=== PATIENT | female | born 1985 | race Caucasian/White ===

== ENCOUNTER 2022-03-03 16:25 | Outpatient (REF) | payer MEDICAID, SELFPAY ==
[2022-03-03 21:49] LABS: Hemoglobin A1C 5.5 % (<5.7)
[2022-03-03 22:01] LABS: Calculated LDL 127 mg/dL (<100); Cholesterol 195 mg/dL (<200); HDL Cholesterol 43 mg/dL (40-60); TSH 1.41 uIU/mL (0.36-3.74); Triglyceride 129 mg/dL (<150)
== END 2022-03-03 16:26 | disposition home or self-care (01) ==
LOC: NCHCN 16:25
PROVIDERS: PCP Family Medicine; Visit Provider Family Medicine
DX: K21.9 Gastro-esophageal reflux disease without esophagitis (principal); E66.01 Morbid (severe) obesity due to excess calories; Z13.220 Encounter for screening for lipoid disorders; Z13.1 Encounter for screening for diabetes mellitus; G47.33 Obstructive sleep apnea (adult) (pediatric)
CPT/HCPCS: 80061; 83036; 84443

== ENCOUNTER 2022-05-19 02:01 | Outpatient (CLI) | payer MEDICAID, SELFPAY ==
[2022-05-19 13:26] LABS: Source Nasal/Nares
[2022-05-19 15:47] LABS: COVID-19 PCR Negative (Negative)
== END 2022-05-19 02:02 | disposition home or self-care (01) ==
LOC: LBO 02:01
PROVIDERS: PCP Family Medicine; Visit Provider Student in an Organized Health Care Education/Training Program
DX: Z20.822 Contact with and (suspected) exposure to COVID-19 (principal); Z01.818 Encounter for other preprocedural examination
CPT/HCPCS: 87635

== ENCOUNTER 2022-05-21 08:59 | Day surgery (SDC) | payer MEDICAID, SELFPAY ==
[2022-05-21] VITALS (8 sets, daily range): BP systolic 94–151; BP diastolic 43–92; PULSE 62–84; RESP 14–21; TEMP 36–36.5; O2SAT 98–100; BMI 45.0
[2022-05-21] MEDS: Lactated Ringers 1,000 ML 30 ML IV (09:56)
--- NOTE | 2022-05-21 10:58 | W.ANESPRE ---
General Info Date of Service Date Performed: 05/21/22 Height: 5 ft 6 in Weight: 126.6 kg Body Mass Index (BMI): 45.0 Surgical Procedure: Operation Date: 05/21/22 10:40 Proposed Procedure Side Surgeon p Knee Arthroscopy w/ any Indicated Meniscal, Chondral and Synovial Surgery Right Felix Cintron MD Meds Allergies and Home Medications Allergies Allergy/AdvReac Type Severity Reaction Status Date / Time SEASONAL AdvReac Intermediate Uncoded 05/21/22 09:12 Home Medication Medication Instructions Recorded aspirin 325 mg tablet,delayed 325 mg PO DAILY Prevent blood clot 05/21/22 release 14 days #14 tabs naproxen 250 mg tablet 250 - 500 mg PO BID PRN #40 tabs 05/21/22 oxycodone 5 mg tablet 5 - 10 mg PO Q4H PRN moderate to 05/21/22 severe pain #18 tabs Current Visit Medications: Current Medications Generic Name Dose Route Start Last Admin Trade Name Freq PRN Reason Stop Dose Admin Ringer's Solution 1,000 mls @ 30 mls/hr 05/21/22 06:00 05/21/22 09:56 IV 06/19/22 23:59 30 mls/hr INFUSION IGNACIO Administration Cefazolin Sodium 3,000 mg/ 100 mls @ 200 mls/hr 05/21/22 06:00 Sodium Chloride IVPB 05/21/22 16:00 PREOP IGNACIO IV Miscellaneous Supplies 1 each 05/21/22 06:00 Iv Access IV 06/19/22 23:59 DIRECTED IGNACIO Naproxen 250 - 500 mg 05/21/22 07:31 Naproxen 500 Mg Tab PO BID PRN PRN Oxycodone HCl 5 - 10 mg 05/21/22 07:31 Oxycodone 5 Mg Tab PO Q4H PRN PRN Sodium Chloride 0 ml 05/21/22 06:00 Normal Saline Flush 10 Ml Syr IV 06/19/22 23:59 PRN PRN Sodium Chloride 0 ml 05/21/22 06:00 Normal Saline 10 Ml Vial IJ 06/19/22 23:59 DIRECTED PRN Sterile Water 0 ml 05/21/22 06:00 Water,Injection,Sterile 10 Ml Vial IJ 06/19/22 23:59 DIRECTED PRN PFSH Active Problems Active Problems: Problem Status Onset Code Tear of lateral meniscus of right knee S83.281A Medical History Medical History Asthma per pt. Sleep apnea Surgical History Surgical History History of placement of ear tubes Tobacco Smoking/Tobacco Use Status: Never Alcohol Alcohol Intake: current Alcohol intake frequency: holidays/special occasions only Substance Use Substance use type: does not use Vital Signs and Lab Results Vital Signs Most Recent Vital Signs in EMR: Most Recent Vital Signs Temp Pulse Resp BP Pulse Ox 36.4 C L 84 18 151/92 H 100 05/21/22 09:13 05/21/22 09:13 05/21/22 09:13 05/21/22 09:13 05/21/22 09:13 Point of Care Results Point of Care Results: POC- Test(urine) Negative 05/21/22 09:44 Lab Results Blood Type / Crossmatch: No Data to Display Complete Blood Count: No Data to Display Complete Metabolic Panel: No Data to Display Liver Function Panel: No Data to Display Coagulation Panel: No Data to Display Cardiac Panel: No Data to Display Arterial Blood Gas: No Data to Display Venous Blood Gas: No Data to Display Pancreas Panel: No Data to Display Thyroid Panel: No Data to Display Infectious Disease: Coronavirus (COVID-19)(PCR) Negative (Negative) 05/19/22 09:26 Coronavirus 2019 Source Nasal/Nares 05/19/22 09:26 Blood Cultures: No Data to Display Toxicology Panel: No Data to Display Panel: No Data to Display Anesthesia Assessment and Plan Anesthesia History Personal History: No History of Anesthesia Complications Family History: No Family History of Anesthesia Complications Exercise Tolerance Exercise Tolerance: Metabolic Equivalents>4 Pertinent Negatives Pertinent Negatives: No Symptoms of GERD (Occaisionally with certain foods), No Major Cardiovascular Symptoms or Complaints, No Major Pulmonary Symptoms or Complaints and No History of CVA/TIA Cardiac & Pulmonary Exam Cardiac Exam: Normal S1/S2 Heart Sounds Pulmonary Exam: Clear Bilateral Breath Sounds Implantable Cardiac Device Does patient have a Pacemaker or an ICD?: No Airway Exam Known Difficult Airway: No Mallampati Class: 3 Mouth Opening: Normal (> 3cm) Thyromental Distance: Greater than 3 cm Neck Range of Motion: Full ROM Neck Circumference: Normal Teeth Condition: Normal Dentition (tongue piercing that she will remove prior to coming back to the room) ASA Classification ASA Score: ASA 3 Emergency Case?: No NPO Status NPO Status: NPO Clears >2 hours, Solids >8 hours Status Status: Negative HCG Anesthesia Plan Resuscitation Status: Full Code Anesthesia Technique: General Anesthesia Airway Planned: Endotracheal Tube Monitors Used: Standard Monitors
[2022-05-21] MEDS: ceFAZolin 3,000 MG in Normal Saline 100 ML 200 MG IVPB (11:41)
[2022-05-21] MEDS: EPINEPHrine 30 MG/30 ML VIAL (12:45)
[2022-05-21] MEDS: Bupivacaine 0.5% Pres-Free W/EPI 10 ML VIAL (12:57)
[2022-05-21] MEDS: MORPHine 4 MG/ML SYR (12:58)
[2022-05-21] MEDS: Ketorolac 15 MG/ML VIAL IVP (13:12)
[2022-05-21] MEDS: fentaNYL 100 MCG/2 ML VIAL IVP (13:30)
--- NOTE | 2022-05-21 13:34 | W.PM.DSUDISC ---
Discharge Plan Disposition Patient Disposition: HOME Condition: Stable Discharge Details Reason For Visit: Right knee surgery Attending Provider: Felix Cintron Primary Care Provider: Mindy Ren Home Meds and New Rx's Prescriptions: New naproxen 250 mg tablet 250 - 500 mg PO BID PRNQty: 40 0RF Rx Instructions: take with a meal aspirin 325 mg tablet,delayed release (DR/EC) 325 mg PO DAILY 14 Days Qty: 14 0RF oxycodone 5 mg tablet 5 - 10 mg PO Q4H MDD 30 mg PRN (Reason: moderate to severe pain) Qty: 18 0RF Discontinued ibuprofen 200 mg tablet 200 mg PO Q6H PRN Discharge Instructions Additional Instructions: Surgery: Right knee arthroscopy with partial medial & lateral meniscectomy, medial femoral condyle chondroplasty, and synovectomy Activity: Weightbearing as tolerated. Advance range of motion as comfort allows. No knee brace or crutches needed as soon as comfortable. Recommend avoiding sports, pivoting, and squatting for 6-8 weeks. A physical therapy prescription will be sent electronically to start in 2 to 3 weeks. Prescriptions: Aspirin 325 mg take 1 daily to prevent a blood clot for 14 days Naproxen 250 mg take 1-2 every 12 hours with a meal as needed for moderate pain Oxycodone 5 mg take 1-2 every 4-6 hours as needed for severe pain You may use [id number] Tylenol (acetaminophen) as needed for mild pain. These pain medications may be taken all at once or in different combinations as needed. Also, recommend Colace (docusate) as a stool softener as surgery and pain medicine cause constipation. You may try [id number] diphenhydramine (Benadryl) 25-50 mg nightly as a sleep aid Dressings: Leave dressing in place for 3 days. May then remove and leave open to air or cover incisions with Band-Aids. May shower after 5 days. Follow-up: 10-[address] Cintron Let us know right away if you develop any redness, drainage, fevers, chest pain, or trouble breathing. Do not drink alcohol or drive for at least 24 hours after anesthesia. Please call the office during business hours with any questions or concerns. Referrals: Felix Cintron MD [ [facility] STAFF PHYSICIAN] - Discharge Orders Discharge Orders: Discharge Order (Routine); Ordered 05/21/22 Ordered By: Felix Cintron
--- NOTE | 2022-05-21 13:41 | ROE_ITS ---
Operative Note Operative Note DATE OF PROCEDURE: 05/21/22 PRE-OP DIAGNOSIS: Right knee 1. Lateral meniscus tear 2. Chondromalacia POST-OP DIAGNOSIS: same Right knee 1. Lateral meniscus tear 2. Chondromalacia: Discrete cartilage lesions medial femoral condyle and lateral femoral condyle 3. Medial meniscus tear 4. Suprapatellar adhesions and intercondylar synovitis PROCEDURE: Right knee 1. Partial medial & lateral meniscectomy, CPT #76142 2. 2 compartment synovectomy, CPT #88897: Suprapatellar and intercondylar 3. Chondroplasty, CPT #67995: Medial femoral condyle SURGEON: Felix Cintorn INTELLECTUAL PROPERTY COUNSEL: None None ANESTHESIA TYPE: Local By Surgeon and General LMA/ETT Refer to Anesthesia Record ESTIMATED BLOOD LOSS: 5 PATHOLOGY: none sent TOURNIQUET TIME: 0 Patient was transported to: PACU Patient's condition: stable Indications: Please see complete medical record for details. Findings: Exam under anesthesia: Full range of motion with valgus alignment. Stable varus valgus Berenice. Arthroscopic findings: Moderate suprapatellar plical bands and synovial adhesions. Significant intercondylar synovitis. Moderate near?full-thickness distal medial aspect medial femoral condyle cartilage lesion with unstable rim cartilage flap. Medial meniscal body posterior horn junction degenerative type horizontal tear. Degenerative type lateral meniscal body posterior horn junction horizontal tear. Small to moderate cartilage loose bodies. Smaller lateral femoral condyle cartilage lesion with no unstable cartilage. Intact ACL. Procedure Description: In the operating room, genral anesthesia was induced. The patient was positioned supine on the operating room table. All bony prominences were well- padded. Preoperative antibiotics were administered. The knee was prepped and draped in the usual sterile fashion. The correct patient, procedure, and side of the procedure were all verified prior to incision. Exam under anesthesia was performed. 10 cc of 0.5% bupivacaine containing epinephrine was infiltrated about the planned anteromedial and anterolateral knee arthroscopy portals. The portals were established and a complete diagnostic arthroscopy was performed with relevant findings detailed above. The mechanical shaver was used to remove pathologic synovium from the intercondylar area. The meniscal biter was used to transect suprapatellar adhesions and plical bands and the shaver used to resect to a smooth margin. Using a combination of hand instruments including meniscal biters and a power shaver and working through the anteromedial and anterolateral compartments the medial meniscus was debrided of all torn tissue to a stable margin. Care was taken to preserve as much meniscus tissue was possible. The meniscal remnant was probed and found to have a stable margin, stable root, and no other tears. This was repeated in the lateral compartment for the lateral meniscus tear leaving some superior leaflet separate from the inferior leaflet to avoid subtotal meniscectomy at the maximal zone of injury. The cartilage lesion on the medial distal aspect medially on the medial femoral condyle had loose full-thickness cartilage flaps at the margins of the lesion. These were demonstrated to be unstable with the probe easily flipping them up. There was also some small to moderately sized loose chondral bodies assuming this was the donor site. The meniscal biter followed by mechanical shaver was used to resect unstable cartilage flaps and smooth the borders of the lesion to avoid impending additional cartilage loose bodies or cartilage tear propagation. Care was taken to remove only as much cartilage as necessary. Under direct arthroscopic visualization an 18-gauge needle was passed into the knee from superolateral into the suprapatellar pouch. The knee was copiously irrigated with arthroscopic fluid until there was a clear effluent before being drained of all fluid. The anteromedial and anterolateral portals were closed in 3-0 Monocryl in a buried interrupted fashion. 20 cc of 0.5% bupivacaine with epinephrine containing 4 mg of morphine was infiltrated into the knee through the previously placed needle. Mastisol, Steri-Strips, and 4 x 4 gauze were applied over the incisions followed by sterile soft roll. The knee was then wrapped gently with an SHAMAR comressive bandage. The patient awoke from anesthesia without complication and was transferred to the recovery room in a stable condition.
--- NOTE | 2022-05-21 15:03 | W.ANESPOSTOP ---
Postoperative Evaluation Date, Time and Location Date Performed: 05/21/22 Time Performed: 15:03 Patient Location: Day Surgery Unit Vital Signs Most Recent Imported Vital Signs: Most Recent Vital Signs Temp Pulse Resp BP Pulse Ox 36.1 C L 67 16 126/69 99 05/21/22 14:33 05/21/22 14:33 05/21/22 14:33 05/21/22 14:33 05/21/22 14:33 Pain Score Most Recent Pain Score: Most Recent Pain Score Pain Level 5 05/21/22 14:33 Assessment Mental Status: Awake (Alert & Oriented to Patient Baseline) Airway and Respiratory Function: Patent airway with normal (patient baseline) respiratory exam Cardiovascular Function: Hemodynamically Stable Hydration Status: Adequately Hydrated Nausea & Vomiting: No Nausea or Vomiting Pain: Pain is tolerable per patient Peripheral Nerve Block: Patient did not receive a nerve block
== END 2022-05-21 15:35 | disposition home or self-care (01) ==
PROVIDERS: PCP Family Medicine; Visit Provider Student in an Organized Health Care Education/Training Program
PROC: (CPT 29870; principal; 2022-05-21 10:30)
DX: M94.261 Chondromalacia, right knee (principal); M23.261 Derangement of other lateral meniscus due to old tear or injury, right knee; M23.221 Derangement of posterior horn of medial meniscus due to old tear or injury, right knee; M65.861 Other synovitis and tenosynovitis, right lower leg; M23.8X1 Other internal derangements of right knee
CPT/HCPCS: 29880; 29876; 81025; J0690; J1100; J1885; J2250; J2270; J2405; J2704; J3010

== ENCOUNTER 2022-09-06 21:21 | Outpatient (REF) | payer MEDICAID, SELFPAY ==
[2022-09-06 21:58] LABS: Anion Gap 9.4 mmol/L (3-11); BUN 14 mg/dL (7-18); CO2 25.6 mmol/L (21.0-32.0); CREATININE 0.9 mg/dL (0.55-1.02); Calcium 9.5 mg/dL (8.5-10.1); Chloride 103 mmol/L (98-107); Glucose 83 mg/dL (74-106); Sodium 138 mmol/L (136-145)
== END 2022-09-06 21:22 | disposition home or self-care (01) ==
LOC: NCHCN 21:21
PROVIDERS: PCP Family Medicine; Visit Provider Nurse Practitioner Family
DX: E66.01 Morbid (severe) obesity due to excess calories (principal)
CPT/HCPCS: 80048

== ENCOUNTER 2023-11-25 09:48 | Outpatient (REF) | payer MEDICAID, SELFPAY ==
[2023-11-26 20:12] LABS: Adenovirus F40/41 Negative (Negative); Astrovirus Negative (Negative); C. difficile toxin Negative (Negative); Cryptosporidium species Negative (Negative); Cyclospora cayetanensis Negative (Negative); Entamoeba histolytica Negative (Negative); Enteroaggregative E.coli(EAEC) Negative (Negative); Enteropathogenic E.coli (EPEC) Negative (Negative); Enterotoxigenic E.coli (ETEC) Negative (Negative); Norovirus GI/GII Negative (Negative); Plesiomonas shigelloides Negative (Negative); Salmonella species Negative (Negative); Sapovirus Negative (Negative); Shiga toxin producing E.coli Negative (Negative); Shigella/Enteroinvasive E.coli Negative (Negative); Specimen Source STOOL; Vibrio cholerae Negative (Negative); Yersinia species Negative (Negative)
== END 2023-11-25 09:49 | disposition home or self-care (01) ==
LOC: NCHCN 09:48
PROVIDERS: PCP Family Medicine; Visit Provider Family Medicine
DX: R19.7 Diarrhea, unspecified (principal)
CPT/HCPCS: 87507

== ENCOUNTER 2025-11-20 14:51 | Outpatient (REF) | payer OTHER, SELFPAY ==
[2025-11-20 18:29] LABS: TSH 1.25 uIU/mL (0.55-4.78)
[2025-11-20 18:34] LABS: Anion Gap 12 mmol/L (3-11); BUN 13 mg/dL (9-23); CO2 23.0 mmol/L (20.0-31.0); Calcium 9.7 mg/dL (8.3-10.6); Chloride 106 mmol/L (98-107); Cholesterol 173 mg/dL (<200); Glucose 77 mg/dL (74-106); HDL Cholesterol 48 mg/dL (>or=50); Potassium 4.3 mmol/L (3.5-5.1); Sodium 141 mmol/L (136-145)
== END 2025-11-20 14:52 | disposition home or self-care (01) ==
LOC: NCHCN 14:51
PROVIDERS: PCP Family Medicine; Visit Provider Family Medicine
DX: Z13.220 Encounter for screening for lipoid disorders (principal); E66.01 Morbid (severe) obesity due to excess calories
CPT/HCPCS: 80048; 80061; 84443